=== PATIENT | male | born 1955 | race Caucasian/White ===

== ENCOUNTER → 2022-07-10 | Day surgery (SDC) | payer OTHER ==
[~2022-07-10] VITALS: Ht 177.8 cm; Wt 93.0 kg
[~2022-07-10] MED LIST: AMLODIPINE BESYL5 MG PO; CENTRUM SILVER1 EAC1 PO
[2022-07-10 09:08] LABS: HCT 46.3 % (42.0-52.0); HGB 15.1 g/dl (13.2-18.0); MCH 29.2 pg (25.0-31.0); MCHC 32.6 g/dL (32.0-36.0); MCV 89.4 fL (78.0-100.0); MPV 9.1 fL (6.0-9.5); RBC 5.18 M/uL (4.70-6.00); RDW 12.8 % (11.5-14.0); WBC 12.7 K/uL (4.0-10.5)
[2022-07-10 09:23] LABS: ALBUMIN 3.8 g/dL (3.4-5.0); BILIRUBIN - TOTAL 0.8 mg/dL (0.2-1.0); BUN/CREAT RATIO (CALC) 14.9 RATIO; CREATININE 0.67 mg/dL (0.67-1.17); GLOBULIN (CALCULATION) 4.2 g/dL; POTASSIUM 3.7 mmol/L (3.5-5.1)
== END | disposition home or self-care (01) ==
LOC: FAS 08:18
PROVIDERS: Surgery
DX: Z12.11 Encounter for screening for malignant neoplasm of colon (principal); K57.30 Diverticulosis of large intestine without perforation or abscess without bleeding; I10 Essential (primary) hypertension; Z86.010 Personal history of colon polyps; Z87.891 Personal history of nicotine dependence
CPT/HCPCS: 36415; 80053; 93005; J0690; J2250; J2704; J7120